=== PATIENT | male | born 1945 | race Caucasian/White ===

== ENCOUNTER 2016-11-22 16:14 | Inpatient (IN) | payer OTHER, BC ==
[~2016-11-22] VITALS: Ht 182.9 cm; Wt 72.3 kg
[~2016-11-22 16:14] MED LIST: ACIDOPHILUS1 EAC4 PO; ADULT LOW DOSE81 M1 PO; ALEVE LIQUID G220 MG PO; ANTI-DIARRHEA2 MG PO; ASPIR-LOW81 MG PO; ASPIRIN EC325 MG PO; ASPIRIN81 M2 PO; ATIVAN1 MG PO; BETA CAROT25000 UNIT PO; CIPRO500 MG PO; CO Q-10100 MG PO; CO Q-10200 MG PO; COCONUT OIL1000 MG PO; COENZYME Q10200 M2 PO; CRANBERRY; CRANBERRY CONC1 EAC1 PO; CRANBERRY TABL1 EACH PO; CRANBERRY500 M2 PO; DAILY VITE1 EAC1 PO; FISH OIL 1,0001 EAC7 PO; FISH OIL OMEGA1 EACH PO; FLONASE16 G1 BOTH NARES; GINKGO BILOBA120 M1 PO; JUICE PLUS PO; K-DUR10 MEQ PO; K-TAB10 MEQ PO; KLOR-CON 1010 ME1 PO; LASIX40 MG PO; LEVAQUIN750 MG PO; LEVOFLOXACIN750 MG PO; LOVENOX40 MG/0.4 SC; MILK THISTLE500 MG PO; NAPROXEN250 MG PO; NITROFURANTOIN100 MG PO; NIZORAL 2% CREA15 GM TP; OMEGA-31000 M1 PO; POTASSIUM CHLO10 ME3 PO; POTASSIUM CHLORIDE PO; SENOKOT,SENN1 TABLET PO; STOOL SOFTENER100 MG PO; TYLENOL; TYLENOL EXTRA500 MG PO; TYLENOL REGULA325 MG PO; VENLAFAXINE HCL75 MG PO; VITAMIN B-6100 MG PO; VITAMIN E400 UNIT PO; ZOFRAN4 MG PO; [UNRECOGNIZED DRUG - CODE] PO
[2016-11-22 17:11] LABS: EOSINOPHIL (%) 0.9 % (0-5); EOSINOPHIL COUNT 0.1 K/uL (0-0.3); HEMATOCRIT 37.2 % (38.0-50.0); IMMATURE GRANULOCYTE (%) 0.3 % (0.0-0.7); IMMATURE GRANULOCYTE COUNT 0.3 K/uL; LYMPHOCYTE COUNT 1.4 K/uL (1.0-2.8); MCH 30.9 PG (29.0-34.0); MCHC 33.9 G/DL (30.0-36.0); MCV 91.2 FL (86-99); MEAN PLAT.VOLUME 9.2 uM^3 (9.0-12.4); MONOCYTE (%) 7.3 % (3-12); MONOCYTE COUNT 0.8 K/uL (0-0.8); NEUTROPHIL COUNT 9.2 K/uL (1.8-6.4); PLATELET COUNT 245 K/uL (156-360); RBC DIS.WIDTH-CV 13.6 % (11.8-14.6); RBC DIS.WIDTH-SD 44.3 % (39-53); RED BLOOD COUNT 4.08 M/uL (4.00-5.50); WHITE BLOOD COUNT 11.6 K/uL (4.1-10.2)
[2016-11-22 17:20] LABS: CHLORIDE 107 mEq/L (99-109); POTASSIUM 4.2 mEq/L (3.7-5.4); SODIUM 140 mEq/L (136-147)
[2016-11-22 17:22] LABS: GLUCOSE 85 mg/dL (70-99)
[2016-11-22 17:23] LABS: ANION GAP 8 MEQ/L (2-14)
[2016-11-22 17:24] LABS: TOTAL BILIRUBIN 0.8 mg/dL (0.0-1.0)
[2016-11-22 17:25] LABS: ALKALINE PHOSPHATASE 78 IU/L (3-129)
[2016-11-22 17:26] LABS: GFR ESTIMATE (CALCULATED) > 59 mL/min/
[2016-11-22 17:27] LABS: UREA NITROGEN (BUN) 18 mg/dL (9-23)
[2016-11-22 17:29] LABS: LIPASE 6 U/L (1.0-51.0)
[2016-11-22 17:31] LABS: TROP-I INTERPRETATION NEGATIVE; TROPONIN-I 0.01 ng/mL (0.0-0.30)
[2016-11-22 17:54] LABS: ADD MIUA? YES; BILIRUBIN NEGATIVE; BLOOD SMALL; COLOR YELLOW ((YELLOW)); GLUCOSE (STRIP) NEGATIVE; KETONES NEGATIVE; LEUKOCYTES LARGE; NITRITE POSITIVE; PROTEIN (STRIP) 30; SPECIFIC GRAVITY 1.019 (1.000-1.030)
[2016-11-22 18:09] LABS: BACTERIA RARE /HPF; EPITHELIAL CELLS NONE SEEN /HPF; MUCUS TRACE /LPF; WHITE BLOOD CELLS TNTC /HPF (0-5)
[2016-11-22] MEDS ORDERED: LO-DOSE ASPIRIN81 M2 PO (18:31)
[2016-11-22] MEDS ORDERED: [UNRECOGNIZED DRUG - OTHER] TP (18:36)
[2016-11-22] MEDS ORDERED: CALAZIME TP (18:36)
[2016-11-22 22:24] VITALS: BP 109/55
[2016-11-23 04:20] VITALS: BP 108/59
[2016-11-23 06:11] LABS: HEMATOCRIT 33.6 % (38.0-50.0); MCH 29.6 PG (29.0-34.0); MCHC 32.7 G/DL (30.0-36.0); MCV 90.6 FL (86-99); MEAN PLAT.VOLUME 9.6 uM^3 (9.0-12.4); PLATELET COUNT 200 K/uL (156-360); RBC DIS.WIDTH-CV 13.8 % (11.8-14.6); RED BLOOD COUNT 3.71 M/uL (4.00-5.50); WHITE BLOOD COUNT 9.4 K/uL (4.1-10.2)
[2016-11-23 08:50] VITALS: BP 110/68
[2016-11-23 11:37] VITALS: BP 112/77
[2016-11-23 16:00] VITALS: BP 149/93
[2016-11-23 19:03] VITALS: BP 120/67
[2016-11-24] VITALS (7 sets, daily range): BP systolic 114–137; BP diastolic 66–82
[2016-11-25 03:48] VITALS: BP 114/72
[2016-11-25 07:29] VITALS: BP 120/68
[2016-11-25 11:10] VITALS: BP 112/66
[2016-11-25 15:13] VITALS: BP 110/64
[2016-11-25 19:59] VITALS: BP 105/67
[2016-11-26] VITALS (7 sets, daily range): BP systolic 89–144; BP diastolic 61–80
[2016-11-26 07:15] LABS: HEMATOCRIT 35.4 % (38.0-50.0); MCH 29.7 PG (29.0-34.0); MCHC 32.8 G/DL (30.0-36.0); MCV 90.5 FL (86-99); MEAN PLAT.VOLUME 9.5 uM^3 (9.0-12.4); PLATELET COUNT 224 K/uL (156-360); RBC DIS.WIDTH-CV 13.6 % (11.8-14.6); RBC DIS.WIDTH-SD 44.8 % (39-53); RED BLOOD COUNT 3.91 M/uL (4.00-5.50)
[2016-11-26 07:16] LABS: WHITE BLOOD COUNT 6.4 K/uL (4.1-10.2)
[2016-11-26 07:28] LABS: ANION GAP 7 MEQ/L (2-14); CHLORIDE 108 MEQ/L (99-109); GFR ESTIMATE (CALCULATED) > 59 mL/min/; GLUCOSE 98 mg/dL (70-99); POTASSIUM 3.7 MEQ/L (3.7-5.4); SAMPLE HEMOLYSIS CHECK 0; SAMPLE ICTERIC CHECK 0; SAMPLE LIPEMIA CHECK 0; SODIUM 140 MEQ/L (136-147); UREA NITROGEN (BUN) 10 mg/dL (9-23)
[2016-11-27 03:36] VITALS: BP 109/65
[2016-11-27 08:10] VITALS: BP 126/72
[2016-11-27] MEDS ORDERED: ZOFRAN4 MG PO (08:57)
[2016-11-27 12:16] VITALS: BP 120/71
[2016-11-27 15:32] VITALS: BP 109/61
[2016-11-27 19:58] VITALS: BP 99/61
[2016-11-27 23:52] VITALS: BP 139/73
[2016-11-28 04:00] VITALS: BP 112/67
[2016-11-28 07:30] VITALS: BP 130/68
[2016-11-28 11:53] VITALS: BP 121/78
[2016-11-28] MEDS ORDERED: HEPARIN SO5000 UNITS SC (13:16)
[2016-11-28 15:28] VITALS: BP 92/57
== END 2016-11-28 18:15 | DRG 71 ==
LOC: EME 16:14 → EXP 16:14 → EDOF 19:20 → 5WEST 19:20 → EDOF 19:20 → 5WEST 21:59 → 5SOUTH 11-23 11:18
PROVIDERS: Hospitalist; Internal Medicine; Physician Assistant
DX: G93.41 Metabolic encephalopathy (principal); N39.0 Urinary tract infection, site not specified; I82.611 Acute embolism and thrombosis of superficial veins of right upper extremity; T80.1XXA Vascular complications following infusion, transfusion and therapeutic injection, initial encounter; Y84.8 Other medical procedures as the cause of abnormal reaction of the patient, or of later complication, without mention of misadventure at the time of the procedure; Y92.239 Unspecified place in hospital as the place of occurrence of the external cause; B96.20 Unspecified Escherichia coli [E. coli] as the cause of diseases classified elsewhere; Z51.5 Encounter for palliative care; F03.90 Unspecified dementia, unspecified severity, without behavioral disturbance, psychotic disturbance, mood disturbance, and anxiety; M41.9 Scoliosis, unspecified; Z66 Do not resuscitate; N40.1 Benign prostatic hyperplasia with lower urinary tract symptoms; R32 Unspecified urinary incontinence; G20 Parkinson's disease; R33.9 Retention of urine, unspecified; G23.1 Progressive supranuclear ophthalmoplegia [Steele-Richardson-Olszewski]; Z99.3 Dependence on wheelchair; B96.4 Proteus (mirabilis) (morganii) as the cause of diseases classified elsewhere; R47.1 Dysarthria and anarthria
CPT/HCPCS: 70450; 71010; 73502; 80048; 80053; 81003; 82948; 83605; 83690; 84484; 85025; 85027; 87040; 87077; 87086; 87186; 92526 GN; 92610 GN; 93005; 93971; 99281; 99285; C9113; G0378; J0696; J1644; J7030; J7042; J7050